=== PATIENT | male | born 1995 | race Caucasian/White ===

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

== ENCOUNTER 2017-01-12 09:02 | Emergency (ER) | payer OTHER ==
[~2017-01-12] VITALS: Ht 190.5 cm; Wt 93.3 kg
[2017-01-12] MEDS ORDERED: VENTOLIN HFA18 GM IH (10:11)
[2017-01-12] MEDS ORDERED: INDOCIN50 MG PO (10:11)
[2017-01-12 10:29] VITALS: BP 141/99
== END 2017-01-12 10:29 | disposition home or self-care (01) ==
LOC: EME 09:02
DX: S39.011A Strain of muscle, fascia and tendon of abdomen, initial encounter (principal); S29.011A Strain of muscle and tendon of front wall of thorax, initial encounter; X58.XXXA Exposure to other specified factors, initial encounter; J45.909 Unspecified asthma, uncomplicated; F17.200 Nicotine dependence, unspecified, uncomplicated
CPT/HCPCS: 71020; 93005; 99281; 99284

== ENCOUNTER 2017-06-08 21:58 | Emergency (ER) | payer OTHER ==
[~2017-06-08] VITALS: Ht 190.5 cm; Wt 85.6 kg
[~2017-06-08 21:58] MED LIST changes: +INDOCIN50 MG PO; +VENTOLIN HFA18 GM IH
[2017-06-08 23:21] LABS: HEMATOCRIT 45.3 % (38.0-50.0); MCH 27.1 PG (29.0-34.0); MCHC 33.3 G/DL (30.0-36.0); MCV 81.3 FL (86-99); MEAN PLAT.VOLUME 9.2 uM^3 (9.0-12.4); PLATELET COUNT 282 K/uL (156-360); RBC DIS.WIDTH-CV 12.8 % (11.8-14.6); RED BLOOD COUNT 5.57 M/uL (4.00-5.50); WHITE BLOOD COUNT 10.7 K/uL (4.1-10.2)
[2017-06-08 23:24] LABS: ADD MIUA? NO; BILIRUBIN NEGATIVE; BLOOD NEGATIVE; COLOR STRAW ((YELLOW)); GLUCOSE (STRIP) NEGATIVE; KETONES NEGATIVE; LEUKOCYTES NEGATIVE; NITRITE NEGATIVE; PROTEIN (STRIP) NEGATIVE; SPECIFIC GRAVITY 1.006 (1.000-1.030); UCUL ADDED? NO; UROBILINOGEN 0.2 MG/DL (0.2-1.0)
[2017-06-08 23:34] LABS: CHLORIDE 99 mEq/L (99-109); SODIUM 138 mEq/L (136-147)
[2017-06-08 23:36] LABS: GLUCOSE 94 mg/dL (70-99)
[2017-06-08 23:38] LABS: ANION GAP 13 MEQ/L (2-14); TOTAL BILIRUBIN 0.8 mg/dL (0.0-1.0)
[2017-06-08 23:40] LABS: ALKALINE PHOSPHATASE 101 IU/L (3-129); GFR ESTIMATE (CALCULATED) > 59 mL/min/
[2017-06-08 23:41] LABS: TROP-I INTERPRETATION NEGATIVE; TROPONIN-I 0.02 ng/mL (0.0-0.30); UREA NITROGEN (BUN) 9 mg/dL (9-23)
[2017-06-08 23:43] LABS: LIPASE 8 U/L (1.0-51.0)
[2017-06-08 23:45] LABS: INFLUENZA A VIRAL ANTIGEN NEGATIVE; INFLUENZA B VIRAL ANTIGEN NEGATIVE
[2017-06-09 00:12] LABS: INTERNAL CONTROL VALID? YES; MONOSPOT (MONONUCLEOSIS SEROL) NEGATIVE
[2017-06-09 01:11] VITALS: BP 128/79
== END 2017-06-09 01:12 | disposition home or self-care (01) ==
LOC: EME 21:58
PROVIDERS: Physician Assistant Medical
DX: B34.9 Viral infection, unspecified (principal); R07.89 Other chest pain; R05 Cough; J02.9 Acute pharyngitis, unspecified; R50.9 Fever, unspecified; H92.03 Otalgia, bilateral; J34.89 Other specified disorders of nose and nasal sinuses; F17.200 Nicotine dependence, unspecified, uncomplicated
CPT/HCPCS: 71020; 80053; 81003; 83690; 84484; 85027; 86308; 87502; 87651 90; 93005; 99281; 99285; J7030

== ENCOUNTER 2017-06-22 15:04 | Emergency (ER) | payer OTHER ==
[~2017-06-22] VITALS: Ht 190.5 cm; Wt 84.2 kg
[2017-06-22] MEDS ORDERED: MOTRIN800 MG PO (15:57)
[2017-06-22 16:20] VITALS: BP 110/61
== END 2017-06-22 16:22 | disposition home or self-care (01) ==
LOC: EME 15:04
DX: M94.0 Chondrocostal junction syndrome [Tietze] (principal); F31.9 Bipolar disorder, unspecified; F90.9 Attention-deficit hyperactivity disorder, unspecified type; F17.200 Nicotine dependence, unspecified, uncomplicated
CPT/HCPCS: 93005; 99281; 99284

== ENCOUNTER 2017-07-08 01:46 | Emergency (ER) | payer OTHER ==
[~2017-07-08] VITALS: Ht 182.9 cm; Wt 85.4 kg
[~2017-07-08 01:46] MED LIST changes: +MOTRIN800 MG PO
[2017-07-08] MEDS ORDERED: NORCO 5/3251 TABLET PO (02:48)
[2017-07-08 03:03] VITALS: BP 141/103
== END 2017-07-08 03:04 | disposition home or self-care (01) ==
LOC: EME 01:46
PROC: 2W38X1Z Immobilization of Right Upper Extremity using Splint (ICD-10-PCS; principal; 2017-07-08)
DX: S62.306A Unspecified fracture of fifth metacarpal bone, right hand, initial encounter for closed fracture (principal); W22.8XXA Striking against or struck by other objects, initial encounter; Z88.0 Allergy status to penicillin
CPT/HCPCS: 73130; 99281; 99284

== ENCOUNTER 2017-07-12 00:53 | Emergency (ER) | payer OTHER ==
[~2017-07-12] VITALS: Ht 190.5 cm; Wt 84.0 kg
[~2017-07-12 00:53] MED LIST changes: +NORCO 5/3251 TABLET PO
[2017-07-12 02:16] LABS: EOSINOPHIL (%) 0.5 % (0-5); HEMATOCRIT 40.9 % (38.0-50.0); IMMATURE GRANULOCYTE (%) 0.2 % (0.0-0.7); INSTRUMENT ABS NEUTROPHIL CT 4.8 K/uL; MCH 27.1 PG (29.0-34.0); MEAN PLAT.VOLUME 9.4 uM^3 (9.0-12.4); MONOCYTE (%) 9.6 % (3-12); MONOCYTE COUNT 0.8 K/uL (0-0.8); NEUTROPHIL COUNT 4.8 K/uL (1.8-6.4); PLATELET COUNT 289 K/uL (156-360); RBC DIS.WIDTH-CV 13.1 % (11.8-14.6); RED BLOOD COUNT 4.99 M/uL (4.00-5.50); WHITE BLOOD COUNT 8.7 K/uL (4.1-10.2)
[2017-07-12 02:26] LABS: CHLORIDE 106 mEq/L (99-109); POTASSIUM 3.6 mEq/L (3.7-5.4); SODIUM 139 mEq/L (136-147)
[2017-07-12 02:27] LABS: GLUCOSE 89 mg/dL (70-99)
[2017-07-12 02:29] LABS: ANION GAP 11 MEQ/L (2-14)
[2017-07-12 02:31] LABS: GFR ESTIMATE (CALCULATED) > 59 mL/min/; SERUM ETHYL ALCOHOL < 10 mg/dL
[2017-07-12 02:32] LABS: UREA NITROGEN (BUN) 19 mg/dL (9-23)
[2017-07-12 07:15] LABS: AMPHETAMINE NEGATIVE (500 ng/mL); BARBITURATES NEGATIVE (200 ng/mL); BENZODIAZEPINES PRESUMPTIVE POSITIVE (150 ng/mL); COCAINE PRESUMPTIVE POSITIVE (150 ng/mL); INTERNAL CONTROLS VALID? YES; METHADONE NEGATIVE (200 ng/mL); METHAMPHETAMINE NEGATIVE (500 ng/mL); OPIATES (MORPHINE) NEGATIVE (100 ng/mL); OXYCODONE PRESUMPTIVE POSITIVE (100 ng/mL); PHENCYCLIDINE NEGATIVE (25 ng/mL); PROPOXYPHENE NEGATIVE (300 ng/mL); THC CANNABINOIDS PRESUMPTIVE POSITIVE (50 ng/mL); TRICYCLIC ANTIDEPRESSANTS NEGATIVE (300 ng/mL)
[2017-07-12 07:16] LABS: ADD MEDTOX COMMENT Y
[2017-07-12 08:00] LABS: BENZODIAZEPINES QUANT VALUE 0 NG/ML; BENZODIAZEPINES, URINE SCREEN Negative (200 ng/mL)
[2017-07-12 12:01] VITALS: BP 99/55
== END 2017-07-12 12:02 | disposition home or self-care (01) ==
LOC: EME 00:53
PROVIDERS: Emergency Medicine
DX: F43.23 Adjustment disorder with mixed anxiety and depressed mood (principal); R45.851 Suicidal ideations; S60.812A Abrasion of left wrist, initial encounter; S62.91XD Unspecified fracture of right hand, subsequent encounter for fracture with routine healing; X78.9XXA Intentional self-harm by unspecified sharp object, initial encounter; F31.9 Bipolar disorder, unspecified; F90.9 Attention-deficit hyperactivity disorder, unspecified type; Z88.0 Allergy status to penicillin; F17.200 Nicotine dependence, unspecified, uncomplicated
CPT/HCPCS: 80048; 84999; 85025; 90839; 99281; 99285; G0480

== ENCOUNTER 2017-10-09 20:45 | Emergency (ER) | payer OTHER ==
[~2017-10-09] VITALS: Ht 188 cm; Wt 83.8 kg
[2017-10-09 22:19] VITALS: BP 118/71
== END 2017-10-09 22:20 | disposition home or self-care (01) ==
LOC: EME 20:45
DX: S90.31XA Contusion of right foot, initial encounter (principal); W50.1XXA Accidental kick by another person, initial encounter; Y93.51 Activity, roller skating (inline) and skateboarding; F17.200 Nicotine dependence, unspecified, uncomplicated; Z88.0 Allergy status to penicillin
CPT/HCPCS: 73630; 99281; 99283

== ENCOUNTER 2017-12-29 22:35 | Emergency (ER) | payer OTHER ==
[~2017-12-29] VITALS: Ht 190.5 cm; Wt 82.8 kg
[2017-12-30 00:49] VITALS: BP 127/81
== END 2017-12-30 00:59 | disposition home or self-care (01) ==
LOC: EME 22:35
DX: M94.0 Chondrocostal junction syndrome [Tietze] (principal); I45.4 Nonspecific intraventricular block; J45.909 Unspecified asthma, uncomplicated; F90.9 Attention-deficit hyperactivity disorder, unspecified type; F31.9 Bipolar disorder, unspecified; F17.200 Nicotine dependence, unspecified, uncomplicated; Z88.0 Allergy status to penicillin
CPT/HCPCS: 71046; 93005; 99281; 99284; J1885

== ENCOUNTER 2018-01-19 16:59 | Emergency (ER) | payer OTHER ==
[~2018-01-19] VITALS: Ht 188 cm; Wt 83.3 kg
[2018-01-19 17:11] VITALS: BP 117/79
== END 2018-01-19 17:33 | disposition left against medical advice (07) ==
LOC: EME 16:59
DX: S69.91XA Unspecified injury of right wrist, hand and finger(s), initial encounter (principal); Z53.21 Procedure and treatment not carried out due to patient leaving prior to being seen by health care provider

== ENCOUNTER 2018-02-28 21:45 | Emergency (ER) | payer OTHER ==
[~2018-02-28] VITALS: Ht 188 cm; Wt 85.0 kg
[2018-02-28 21:58] VITALS: BP 141/89
[2018-02-28 22:15] LABS: HEMATOCRIT 41.4 % (38.0-50.0); HEMOGLOBIN 14.2 G/DL (12.5-16.6); MCHC 34.3 G/DL (30.0-36.0); MCV 81.5 FL (86-99); PLATELET COUNT 297 K/uL (156-360); RBC DIS.WIDTH-CV 13.1 % (11.8-14.6); RBC DIS.WIDTH-SD 38.8 % (39-53); RED BLOOD COUNT 5.08 M/uL (4.00-5.50); WHITE BLOOD COUNT 10.1 K/uL (4.1-10.2)
[2018-02-28 22:24] LABS: CHLORIDE 105 mEq/L (99-109); POTASSIUM 3.9 mEq/L (3.7-5.4); SODIUM 140 mEq/L (136-147)
[2018-02-28 22:26] LABS: GLUCOSE 98 mg/dL (70-99)
[2018-02-28 22:29] LABS: CREATININE 0.9 mg/dL (0.6-1.3); GFR ESTIMATE (CALCULATED) > 59 mL/min/ (58.99-99999)
[2018-02-28 22:30] LABS: UREA NITROGEN (BUN) 10 mg/dL (9-23)
[2018-02-28 22:36] LABS: TROP-I INTERPRETATION NEGATIVE; TROPONIN-I < 0.01 ng/mL (0.0-0.30)
== END 2018-03-01 02:14 | disposition left against medical advice (07) ==
LOC: EME 21:45
DX: R20.0 Anesthesia of skin (principal); R07.9 Chest pain, unspecified; Z53.21 Procedure and treatment not carried out due to patient leaving prior to being seen by health care provider
CPT/HCPCS: 71046; 80048; 84484; 85027; 93005

== ENCOUNTER 2018-03-02 23:43 | Emergency (ER) | payer OTHER ==
[~2018-03-02] VITALS: Ht 188 cm; Wt 83.7 kg
[2018-03-03 00:19] LABS: HEMATOCRIT 43.2 % (38.0-50.0); HEMOGLOBIN 14.7 G/DL (12.5-16.6); MCH 27.9 PG (29.0-34.0); PLATELET COUNT 307 K/uL (156-360); RBC DIS.WIDTH-CV 13.3 % (11.8-14.6); RBC DIS.WIDTH-SD 39.6 % (39-53); RED BLOOD COUNT 5.27 M/uL (4.00-5.50); WHITE BLOOD COUNT 12.4 K/uL (4.1-10.2)
[2018-03-03 00:29] LABS: CHLORIDE 108 mEq/L (99-109); POTASSIUM 3.8 mEq/L (3.7-5.4); SODIUM 141 mEq/L (136-147)
[2018-03-03 00:30] LABS: GLUCOSE 97 mg/dL (70-99)
[2018-03-03 00:34] LABS: CREATININE 0.8 mg/dL (0.6-1.3); GFR ESTIMATE (CALCULATED) > 59 mL/min/ (58.99-99999)
[2018-03-03 00:35] LABS: UREA NITROGEN (BUN) 11 mg/dL (9-23)
[2018-03-03 00:40] LABS: TROP-I INTERPRETATION NEGATIVE; TROPONIN-I < 0.01 ng/mL (0.0-0.30)
[2018-03-03] MEDS ORDERED: MOTRIN400 MG PO (00:56)
[2018-03-03] MEDS ORDERED: TYLENOL325 M2 PO (01:06)
[2018-03-03 01:16] VITALS: BP 111/92
[2018-03-04] MEDS ORDERED: VENTOLIN HFA18 GM IH (02:19)
[2018-03-04] MEDS ORDERED: ZITHROMAX250 MG PO (02:19)
[2018-03-04] MEDS ORDERED: PREDNISONE20 MG PO (02:19)
== END 2018-03-03 01:18 | disposition home or self-care (01) ==
LOC: EME → EDBD 23:43 → EME 03-03 01:18
PROVIDERS: Emergency Medicine
DX: M94.0 Chondrocostal junction syndrome [Tietze] (principal); R07.89 Other chest pain; I45.10 Unspecified right bundle-branch block; F17.200 Nicotine dependence, unspecified, uncomplicated
CPT/HCPCS: 71045; 80048; 84484; 85027; 93005; 99281; 99285

== ENCOUNTER 2018-03-03 22:55 | Emergency (ER) | payer OTHER ==
[~2018-03-03] VITALS: Ht 188 cm; Wt 84.7 kg
[~2018-03-03 22:55] MED LIST changes: +MOTRIN400 MG PO; +TYLENOL325 M2 PO
[2018-03-03 23:46] LABS: HEMATOCRIT 43.2 % (38.0-50.0); HEMOGLOBIN 14.6 G/DL (12.5-16.6); MCH 27.8 PG (29.0-34.0); MCHC 33.8 G/DL (30.0-36.0); MCV 82.1 FL (86-99); PLATELET COUNT 322 K/uL (156-360); RBC DIS.WIDTH-CV 13.4 % (11.8-14.6); RBC DIS.WIDTH-SD 39.8 % (39-53); RED BLOOD COUNT 5.26 M/uL (4.00-5.50); WHITE BLOOD COUNT 10.5 K/uL (4.1-10.2)
[2018-03-03 23:56] LABS: CHLORIDE 106 mEq/L (99-109); POTASSIUM 4.1 mEq/L (3.7-5.4); SODIUM 142 mEq/L (136-147)
[2018-03-03 23:58] LABS: GLUCOSE 75 mg/dL (70-99)
[2018-03-04 00:02] LABS: CREATININE 0.9 mg/dL (0.6-1.3); GFR ESTIMATE (CALCULATED) > 59 mL/min/ (58.99-99999)
[2018-03-04 00:03] LABS: UREA NITROGEN (BUN) 14 mg/dL (9-23)
[2018-03-04 00:06] LABS: TROP-I INTERPRETATION NEGATIVE; TROPONIN-I < 0.01 ng/mL (0.0-0.30)
[2018-03-04 01:27] LABS: APPEARANCE CLEAR ((CLEAR)); BILIRUBIN NEGATIVE; BLOOD NEGATIVE; COLOR YELLOW ((YELLOW)); GLUCOSE (STRIP) NEGATIVE; KETONES NEGATIVE; LEUKOCYTES NEGATIVE; NITRITE NEGATIVE; PROTEIN (STRIP) NEGATIVE; SPECIFIC GRAVITY 1.024 (1.000-1.030)
[2018-03-04 01:43] LABS: AMPHETAMINE NEGATIVE (500 ng/mL); BARBITURATES NEGATIVE (200 ng/mL); BENZODIAZEPINES PRESUMPTIVE POSITIVE (150 ng/mL); BUPRENORPHINE NEGATIVE (10 ng/mL); COCAINE NEGATIVE (150 ng/mL); METHADONE NEGATIVE (200 ng/mL); METHAMPHETAMINE NEGATIVE (500 ng/mL); OPIATES (MORPHINE) NEGATIVE (100 ng/mL); OXYCODONE PRESUMPTIVE POSITIVE (100 ng/mL); PHENCYCLIDINE NEGATIVE (25 ng/mL); PROPOXYPHENE NEGATIVE (300 ng/mL); THC CANNABINOIDS NEGATIVE (50 ng/mL); TRICYCLIC ANTIDEPRESSANTS NEGATIVE (300 ng/mL)
[2018-03-04 02:12] LABS: BENZODIAZEPINES, URINE SCREEN POSITIVE (200 ng/mL)
[2018-03-04] MEDS ORDERED: VENTOLIN HFA18 GM IH (02:19)
[2018-03-04] MEDS ORDERED: PREDNISONE20 MG PO (02:19)
[2018-03-04] MEDS ORDERED: ZITHROMAX250 MG PO (02:19)
[2018-03-04 02:33] VITALS: BP 131/86
== END 2018-03-04 02:34 | disposition home or self-care (01) ==
LOC: EME 22:55
PROVIDERS: Physician Assistant
DX: R07.89 Other chest pain (principal); J20.9 Acute bronchitis, unspecified; J45.909 Unspecified asthma, uncomplicated; F31.9 Bipolar disorder, unspecified; Z87.891 Personal history of nicotine dependence; Z87.39 Personal history of other diseases of the musculoskeletal system and connective tissue; Z87.81 Personal history of (healed) traumatic fracture; Z88.0 Allergy status to penicillin
CPT/HCPCS: 71046; 80048 91; 81003; 84484; 84999; 85027; 93005; 99281; 99285; J7512

== ENCOUNTER 2018-03-11 23:49 | Emergency (ER) | payer OTHER ==
[~2018-03-11] VITALS: Ht 188 cm; Wt 83.6 kg
[~2018-03-11 23:49] MED LIST changes: +PREDNISONE20 MG PO; +ZITHROMAX250 MG PO
[2018-03-12 00:12] LABS: HEMATOCRIT 45.6 % (38.0-50.0); HEMOGLOBIN 15.7 G/DL (12.5-16.6); MCHC 34.4 G/DL (30.0-36.0); MCV 81.3 FL (86-99); PLATELET COUNT 347 K/uL (156-360); RBC DIS.WIDTH-CV 13.6 % (11.8-14.6); RBC DIS.WIDTH-SD 39.8 % (39-53); RED BLOOD COUNT 5.61 M/uL (4.00-5.50); WHITE BLOOD COUNT 13.5 K/uL (4.1-10.2)
[2018-03-12 00:20] LABS: CHLORIDE 110 mEq/L (99-109); POTASSIUM 3.9 mEq/L (3.7-5.4); SODIUM 142 mEq/L (136-147)
[2018-03-12 00:22] LABS: GLUCOSE 106 mg/dL (70-99); TOTAL PROTEIN 6.1 g/dL (6.4-8.3)
[2018-03-12 00:24] LABS: AMPHETAMINE NEGATIVE (500 ng/mL); BARBITURATES NEGATIVE (200 ng/mL); BENZODIAZEPINES NEGATIVE (150 ng/mL); BUPRENORPHINE NEGATIVE (10 ng/mL); COCAINE NEGATIVE (150 ng/mL); METHADONE NEGATIVE (200 ng/mL); METHAMPHETAMINE NEGATIVE (500 ng/mL); OPIATES (MORPHINE) NEGATIVE (100 ng/mL); OXYCODONE NEGATIVE (100 ng/mL); PHENCYCLIDINE NEGATIVE (25 ng/mL); PROPOXYPHENE NEGATIVE (300 ng/mL); THC CANNABINOIDS NEGATIVE (50 ng/mL); TRICYCLIC ANTIDEPRESSANTS NEGATIVE (300 ng/mL)
[2018-03-12 00:24] LABS: TOTAL BILIRUBIN 0.4 mg/dL (0.0-1.0)
[2018-03-12 00:25] LABS: ALKALINE PHOSPHATASE 56 IU/L (3-129); SERUM ETHYL ALCOHOL < 10 mg/dL
[2018-03-12 00:26] LABS: CREATININE 0.9 mg/dL (0.6-1.3); GFR ESTIMATE (CALCULATED) > 59 mL/min/ (58.99-99999)
[2018-03-12 00:27] LABS: AST (GOT) 13 IU/L (2-34); UREA NITROGEN (BUN) 12 mg/dL (9-23)
[2018-03-12 00:29] LABS: ALT (GPT) 13 IU/L (3-49)
[2018-03-12 01:06] VITALS: BP 130/60
== END 2018-03-12 01:07 | disposition home or self-care (01) ==
LOC: EME 23:49
PROVIDERS: Emergency Medicine
DX: F33.1 Major depressive disorder, recurrent, moderate (principal); F17.200 Nicotine dependence, unspecified, uncomplicated
CPT/HCPCS: 80053; 85027; 90837; 99281; 99284; G0480

== ENCOUNTER 2018-04-09 19:37 | Emergency (ER) | payer OTHER ==
[~2018-04-09] VITALS: Ht 188 cm; Wt 81.1 kg
[2018-04-09 20:09] LABS: BASOPHIL (%) 0.4 % (0-1); BASOPHIL COUNT 0.1 K/uL (0-0.1); EOSINOPHIL (%) 0.4 % (0-5); EOSINOPHIL COUNT 0.1 K/uL (0-0.3); HEMATOCRIT 45.9 % (38.0-50.0); HEMOGLOBIN 15.7 G/DL (12.5-16.6); IMMATURE GRANULOCYTE (%) 0.3 % (0.0-0.7); LYMPHOCYTE (%) 12.7 % (15-42); LYMPHOCYTE COUNT 1.7 K/uL (1.0-2.8); MCH 28.3 PG (29.0-34.0); MCHC 34.2 G/DL (30.0-36.0); MCV 82.7 FL (86-99); MONOCYTE (%) 6.2 % (3-12); MONOCYTE COUNT 0.8 K/uL (0-0.8); NEUTROPHIL COUNT 10.5 K/uL (1.8-6.4); PLATELET COUNT 275 K/uL (156-360); RBC DIS.WIDTH-CV 13.3 % (11.8-14.6); RBC DIS.WIDTH-SD 40.5 % (39-53); RED BLOOD COUNT 5.55 M/uL (4.00-5.50); WHITE BLOOD COUNT 13.1 K/uL (4.1-10.2)
[2018-04-09 20:17] LABS: CHLORIDE 105 mEq/L (99-109); POTASSIUM 3.7 mEq/L (3.7-5.4); SODIUM 139 mEq/L (136-147)
[2018-04-09 20:19] LABS: GLUCOSE 140 mg/dL (70-99)
[2018-04-09 20:23] LABS: GFR ESTIMATE (CALCULATED) > 59 mL/min/ (58.99-99999)
[2018-04-09 20:24] LABS: UREA NITROGEN (BUN) 12 mg/dL (9-23)
[2018-04-09 20:54] LABS: APPEARANCE CLEAR ((CLEAR)); BILIRUBIN NEGATIVE; BLOOD NEGATIVE; COLOR AMBER ((YELLOW)); GLUCOSE (STRIP) NEGATIVE; KETONES 5; LEUKOCYTES NEGATIVE; NITRITE NEGATIVE; PROTEIN (STRIP) NEGATIVE; SPECIFIC GRAVITY 1.029 (1.000-1.030); UCUL ADDED? NO
[2018-04-09] MEDS ORDERED: MOTRIN800 MG PO (21:29)
[2018-04-09 21:42] VITALS: BP 105/68
== END 2018-04-09 21:42 | disposition home or self-care (01) ==
LOC: EME 19:37
PROVIDERS: Physician Assistant
DX: J06.9 Acute upper respiratory infection, unspecified (principal); J02.9 Acute pharyngitis, unspecified; J45.909 Unspecified asthma, uncomplicated; Z88.0 Allergy status to penicillin; F17.200 Nicotine dependence, unspecified, uncomplicated
CPT/HCPCS: 71046; 80048; 81003; 85025; 87502; 87651 90; 99281; 99284

== ENCOUNTER 2018-04-30 16:11 | Emergency (ER) | payer OTHER ==
[~2018-04-30] VITALS: Ht 188 cm; Wt 81.3 kg
[2018-04-30 16:14] VITALS: BP 148/96
== END 2018-04-30 17:38 | disposition left against medical advice (07) ==
LOC: EME 16:11
DX: S61.419A Laceration without foreign body of unspecified hand, initial encounter (principal); Z53.21 Procedure and treatment not carried out due to patient leaving prior to being seen by health care provider

== ENCOUNTER 2018-05-20 19:09 | Emergency (ER) | payer OTHER ==
[~2018-05-20] VITALS: Ht 188 cm; Wt 84.1 kg
[2018-05-20 19:45] LABS: HEMATOCRIT 47.1 % (38.0-50.0); MCH 27.6 PG (29.0-34.0); MCV 81.2 FL (86-99); PLATELET COUNT 300 K/uL (156-360); RBC DIS.WIDTH-SD 38.3 % (39-53); WHITE BLOOD COUNT 9.4 K/uL (4.1-10.2)
[2018-05-20 19:56] LABS: ALBUMIN 3.9 g/dL (3.2-4.8); CHLORIDE 107 mEq/L (99-109); POTASSIUM 4.2 mEq/L (3.7-5.4); SODIUM 140 mEq/L (136-147)
[2018-05-20 19:58] LABS: GLUCOSE 99 mg/dL (70-99)
[2018-05-20 20:00] LABS: TOTAL BILIRUBIN 0.7 mg/dL (0.0-1.0)
[2018-05-20 20:02] LABS: ALKALINE PHOSPHATASE 49 IU/L (3-129); CREATININE 0.8 mg/dL (0.6-1.3); GFR ESTIMATE (CALCULATED) > 59 mL/min/ (58.99-99999)
[2018-05-20 20:03] LABS: UREA NITROGEN (BUN) 10 mg/dL (9-23)
[2018-05-20 20:04] LABS: AST (GOT) 16 IU/L (2-34)
[2018-05-20 20:05] LABS: ALT (GPT) 25 IU/L (3-49)
[2018-05-20 20:55] LABS: APPEARANCE CLEAR ((CLEAR)); BILIRUBIN NEGATIVE; BLOOD NEGATIVE; COLOR YELLOW ((YELLOW)); GLUCOSE (STRIP) NEGATIVE; KETONES NEGATIVE; LEUKOCYTES NEGATIVE; NITRITE NEGATIVE; PROTEIN (STRIP) NEGATIVE; SPECIFIC GRAVITY 1.026 (1.000-1.030); UCUL ADDED? NO
[2018-05-20] MEDS ORDERED: BENTYL10 MG PO (21:55)
[2018-05-20 22:34] VITALS: BP 115/72
== END 2018-05-20 21:57 | disposition home or self-care (01) ==
LOC: EME 19:09
DX: R10.9 Unspecified abdominal pain (principal); F32.9 Major depressive disorder, single episode, unspecified; F90.9 Attention-deficit hyperactivity disorder, unspecified type; J45.909 Unspecified asthma, uncomplicated; F17.200 Nicotine dependence, unspecified, uncomplicated; Z88.0 Allergy status to penicillin
CPT/HCPCS: 74176; 80053; 81003; 85027; 99281; 99284; J1885

== ENCOUNTER 2018-05-21 23:14 | Emergency (ER) | payer OTHER ==
[~2018-05-21] VITALS: Ht 188 cm; Wt 85.5 kg
[~2018-05-21 23:14] MED LIST changes: +BENTYL10 MG PO
[2018-05-22 01:50] LABS: APPEARANCE CLEAR ((CLEAR)); BILIRUBIN NEGATIVE; BLOOD NEGATIVE; COLOR YELLOW ((YELLOW)); GLUCOSE (STRIP) NEGATIVE; KETONES NEGATIVE; LEUKOCYTES NEGATIVE; NITRITE NEGATIVE; PROTEIN (STRIP) 30; SPECIFIC GRAVITY 1.034 (1.000-1.030); UCUL ADDED? NO
[2018-05-22 02:10] LABS: HEMATOCRIT 42.6 % (38.0-50.0); HEMOGLOBIN 14.3 G/DL (12.5-16.6); MCH 27.7 PG (29.0-34.0); MCHC 33.6 G/DL (30.0-36.0); MCV 82.4 FL (86-99); PLATELET COUNT 294 K/uL (156-360); RBC DIS.WIDTH-CV 13.2 % (11.8-14.6); RBC DIS.WIDTH-SD 39.5 % (39-53); RED BLOOD COUNT 5.17 M/uL (4.00-5.50); WHITE BLOOD COUNT 8.5 K/uL (4.1-10.2)
[2018-05-22 02:23] LABS: ALBUMIN 3.6 g/dL (3.2-4.8)
[2018-05-22 02:24] LABS: CHLORIDE 109 mEq/L (99-109); POTASSIUM 3.9 mEq/L (3.7-5.4); SODIUM 141 mEq/L (136-147)
[2018-05-22 02:26] LABS: GLUCOSE 77 mg/dL (70-99); TOTAL PROTEIN 5.5 g/dL (6.4-8.3)
[2018-05-22 02:29] LABS: ALKALINE PHOSPHATASE 47 IU/L (3-129)
[2018-05-22 02:30] LABS: GFR ESTIMATE (CALCULATED) > 59 mL/min/ (58.99-99999)
[2018-05-22 02:31] LABS: AST (GOT) 16 IU/L (2-34)
[2018-05-22 02:32] LABS: ALT (GPT) 22 IU/L (3-49)
[2018-05-22 02:33] LABS: CREATINE KINASE 109 IU/L (1-294)
[2018-05-22 02:44] LABS: TOTAL BILIRUBIN 0.4 mg/dL (0.0-1.0); UREA NITROGEN (BUN) 23 mg/dL (9-23)
[2018-05-22 02:52] LABS: AMPHETAMINE NEGATIVE (500 ng/mL); BARBITURATES NEGATIVE (200 ng/mL); BENZODIAZEPINES NEGATIVE (150 ng/mL); BUPRENORPHINE NEGATIVE (10 ng/mL); COCAINE NEGATIVE (150 ng/mL); METHADONE NEGATIVE (200 ng/mL); METHAMPHETAMINE NEGATIVE (500 ng/mL); OPIATES (MORPHINE) NEGATIVE (100 ng/mL); OXYCODONE NEGATIVE (100 ng/mL); PHENCYCLIDINE NEGATIVE (25 ng/mL); PROPOXYPHENE NEGATIVE (300 ng/mL); THC CANNABINOIDS NEGATIVE (50 ng/mL); TRICYCLIC ANTIDEPRESSANTS PRESUMPTIVE POSITIVE (300 ng/mL)
[2018-05-22 02:56] LABS: ERTH.SED.RATE < 1 MM/HR (0-15)
[2018-05-22 04:16] VITALS: BP 130/87
[2018-05-22 08:08] LABS: THYROTROPIN (TSH) 1.5 MIU/L (0.4-5.5)
[2018-05-22 09:57] LABS: LYME DISEASE SEROLOGY SCREEN NEGATIVE (NEGATIVE)
== END 2018-05-22 04:16 | disposition home or self-care (01) ==
LOC: EME 23:14
PROVIDERS: Physician Assistant
DX: R53.83 Other fatigue (principal); R10.9 Unspecified abdominal pain; F32.9 Major depressive disorder, single episode, unspecified; J45.909 Unspecified asthma, uncomplicated; F17.200 Nicotine dependence, unspecified, uncomplicated; Z88.0 Allergy status to penicillin
CPT/HCPCS: 80053; 81003; 82550; 84443; 85027; 85651; 86618; 99281; 99284; J2405; J7030

== ENCOUNTER 2018-05-25 00:33 | Emergency (ER) | payer OTHER ==
[~2018-05-25] VITALS: Ht 188 cm; Wt 82.5 kg
[2018-05-25 01:38] LABS: HEMATOCRIT 40.5 % (38.0-50.0); HEMOGLOBIN 13.8 G/DL (12.5-16.6); MCH 27.9 PG (29.0-34.0); MCHC 34.1 G/DL (30.0-36.0); MCV 81.8 FL (86-99); PLATELET COUNT 268 K/uL (156-360); RBC DIS.WIDTH-CV 12.8 % (11.8-14.6); RBC DIS.WIDTH-SD 38.1 % (39-53); RED BLOOD COUNT 4.95 M/uL (4.00-5.50); WHITE BLOOD COUNT 13.7 K/uL (4.1-10.2)
[2018-05-25 01:43] LABS: INTER. NORMALIZED RATIO 1.1
[2018-05-25 01:45] LABS: PTT 28.3 SEC (25-37)
[2018-05-25 01:46] LABS: ALBUMIN 3.8 g/dL (3.2-4.8)
[2018-05-25 01:47] LABS: CHLORIDE 104 mEq/L (99-109); POTASSIUM 3.7 mEq/L (3.7-5.4); SODIUM 138 mEq/L (136-147)
[2018-05-25 01:49] LABS: GLUCOSE 87 mg/dL (70-99)
[2018-05-25 01:51] LABS: TOTAL BILIRUBIN 0.4 mg/dL (0.0-1.0)
[2018-05-25 01:52] LABS: ALKALINE PHOSPHATASE 58 IU/L (3-129); SERUM ETHYL ALCOHOL < 10 mg/dL
[2018-05-25 01:53] LABS: CREATININE 0.9 mg/dL (0.6-1.3); GFR ESTIMATE (CALCULATED) > 59 mL/min/ (58.99-99999)
[2018-05-25 01:54] LABS: AST (GOT) 14 IU/L (2-34); UREA NITROGEN (BUN) 17 mg/dL (9-23)
[2018-05-25 01:56] LABS: ALT (GPT) 16 IU/L (3-49); LIPASE 15 U/L (1.0-51.0)
[2018-05-25 03:14] LABS: APPEARANCE CLEAR ((CLEAR)); BILIRUBIN NEGATIVE; BLOOD NEGATIVE; COLOR STRAW ((YELLOW)); GLUCOSE (STRIP) NEGATIVE; KETONES NEGATIVE; LEUKOCYTES NEGATIVE; NITRITE NEGATIVE; PROTEIN (STRIP) NEGATIVE; SPECIFIC GRAVITY 1.006 (1.000-1.030); UCUL ADDED? NO; UROBILINOGEN 0.2 MG/DL (0.2-1.0)
[2018-05-25 03:22] LABS: AMPHETAMINE NEGATIVE (500 ng/mL); BARBITURATES NEGATIVE (200 ng/mL); BENZODIAZEPINES NEGATIVE (150 ng/mL); BUPRENORPHINE NEGATIVE (10 ng/mL); COCAINE NEGATIVE (150 ng/mL); METHADONE NEGATIVE (200 ng/mL); METHAMPHETAMINE NEGATIVE (500 ng/mL); OPIATES (MORPHINE) NEGATIVE (100 ng/mL); OXYCODONE NEGATIVE (100 ng/mL); PHENCYCLIDINE NEGATIVE (25 ng/mL); PROPOXYPHENE NEGATIVE (300 ng/mL); THC CANNABINOIDS NEGATIVE (50 ng/mL); TRICYCLIC ANTIDEPRESSANTS NEGATIVE (300 ng/mL)
[2018-05-25 06:08] LABS: TROP-I INTERPRETATION NEGATIVE; TROPONIN-I < 0.01 ng/mL (0.0-0.30)
[2018-05-25] MEDS ORDERED: MAALOX ADVANCE355 ML PO (06:23)
[2018-05-25] MEDS ORDERED: ACID REDUCER20 MG PO (06:23)
[2018-05-25 08:01] VITALS: BP 105/58
== END 2018-05-25 08:04 | disposition home or self-care (01) ==
LOC: EME 00:33
PROVIDERS: Emergency Medicine
DX: R10.32 Left lower quadrant pain (principal); R55 Syncope and collapse; M54.2 Cervicalgia; R53.1 Weakness; M54.5 Low back pain; I45.10 Unspecified right bundle-branch block; W18.30XA Fall on same level, unspecified, initial encounter; F17.200 Nicotine dependence, unspecified, uncomplicated
CPT/HCPCS: 71046; 72050; 74176; 80053; 81003; 83605; 83690; 84484; 85027; 85610; 85730; 93005; 99281; 99285; G0480; J0500; J2270; J2405; J7030